=== PATIENT | male | born 1965 | race Caucasian/White ===

== ENCOUNTER 2017-07-21 07:12 | Emergency (ER) | payer OTHER ==
--- NOTE | 2017-07-21 07:31 | EDM.PDOC ---
ED HPI GENERAL MEDICAL PROBLEM - General Chief Complaint: Lower Extremity Injury/Pain Stated Complaint: FOOT SWELLING POSS GOUT Time Seen by Provider: 07/21/17 07:23 - History of Present Illness INITIAL COMMENTS - FREE TEXT/NARRATIVE: 52-year-old male presents emergency room with left foot pain. This started yesterday it is around his ankle and in his midfoot and extends back to his heel. Patient has a history gout this is usually how it presents he has not had a more typical great toe presentation. He is not on any preventative therapies for this. Patient did try some ibuprofen 600 mg midday yesterday. This series of pain started yesterday progressively worsened he did not get much relief from the ibuprofen. Patient states he usually gets started on prednisone and this is what usually works the best for him. Patient denies any fevers or chills. The patient is from the [facility]. He is driving with his son back home and anticipates driving today. Left Feet Pain Score (Numeric/FACES): 9 - Related Data Allergies Allergy/AdvReac Type Severity Reaction Status Date / Time oxycodone Allergy Cannot Verified 07/21/17 07:22 Remember Home Meds: Home Meds Ibuprofen. 07/21/17 [History] Prednisone [IMW: predniSONE] 20 mg PO WITHBREAKFAST #17 tab 07/21/17 [Rx] Review of Systems - Review of Systems Review Of Systems: See Below Respiratory: Reports: No Symptoms Cardiovascular: Reports: No Symptoms GI/Abdominal: Reports: No Symptoms Musculoskeletal: Reports: Foot Pain Skin: Reports: No Symptoms Neurological: Reports: No Symptoms ED EXAM, GENERAL - Physical Exam Exam: See Below Exam Limited By: No Limitations General Appearance: Alert, No Apparent Distress, Other (Upon presentation his pulse was a little fast at 103 blood pressure was elevated at 167/119) Respiratory/Chest: No Respiratory Distress, Lungs Clear, Normal Breath Sounds Cardiovascular: Regular Rate, Rhythm, No Edema, No Murmur Extremities: Other (Examination of his left foot shows normal neurologic and vascular status patient has some swelling distal to the ankle over the medial midfoot and some generalized tenderness around the anklesignificant warmth he has some tenderness with palpation mild erythema.) Neurological: Alert, Oriented, Normal Cognition Course - Vital Signs Last Recorded V/S: Last Vital Signs Temp 36.6 C 07/21/17 07:22 Pulse 103 H 07/21/17 07:22 Resp BP 167/119 H 07/21/17 07:22 Pulse Ox 98 07/21/17 07:22 - Orders/Labs/Meds Orders: Active Orders 24 hr Category Date Time Status Foot Comp Min 3V Lt [CR] Stat Exams 07/21/17 07:31 Taken Labs: Laboratory Tests 07/21/17 07/21/17 Range/Units 07:55 07:55 WBC 8.08 (4.23-9.07) K/mm3 RBC 4.91 (4.63-6.08) M/mm3 Hgb 16.1 (13.7-17.5) gm/L Hct 46.7 (40.1-51.0) % MCV 95.1 H (79.0-92.2) fl MCH 32.8 H (25.7-32.2) pg MCHC 34.5 (32.2-35.5) g/dl RDW Std Deviation 40.6 (35.1-43.9) fL Plt Count 234 (163-337) K/mm3 MPV 9.5 (9.4-12.3) fl Neutrophils % (Manual) 74 H (40-60) % Band Neutrophils % 1 (0-10) % Lymphocytes % (Manual) 18 L (20-40) % Atypical Lymphs % 0 % Monocytes % (Manual) 5 (2-10) % Eosinophils % (Manual) 1 (0.8-7.0) % Basophils % (Manual) 1 (0.2-1.2) Platelet Estimate Adequate RBC Morph Comment Normal Sodium 140 (136-145) mEq/L Potassium 4.4 (3.5-5.1) mEq/L Chloride 104 (98-107) mEq/L Carbon Dioxide 27 (21-32) mEq/L Anion Gap 13.4 (5-15) BUN 14 (7-18) mg/dL Creatinine 1.0 (0.7-1.3) mg/dL Est Cr Clr Drug Dosing 99.88 mL/min Estimated GFR (MDRD) > 60 (>60) mL/min BUN/Creatinine Ratio 14.0 (14-18) Glucose 119 H (74-106) mg/dL Uric Acid 8.2 H (3.5-7.2) mg/dL Calcium 8.9 (8.5-10.1) mg/dL Meds: Medications Discontinued Medications Generic Name Dose Route Start Last Admin Trade Name Shellie PRClara Reason Stop Dose Admin Prednisone 60 mg 07/21/17 08:32 Prednisone PO 07/21/17 08:33 ONETIME ONE - Re-Assessments/Exams Free Text/Narrative Re-Assessment/Exam: 07/21/17 08:35 Uric acid is 8.3 basic metabolic is otherwise unremarkable CBC shows a white count that is not elevated significant left shift. X-ray examination is unremarkable of his left foot. Patient will be started on prednisone with firm instructions to establish with a regular physician back home to follow-up on his blood pressure Departure - Departure Time of Disposition: 08:36 Disposition: Home, Self-Care 01 Clinical Impression: Gout attack - Discharge Information Prescriptions: Prednisone [IMW: predniSONE] 20 mg PO WITHBREAKFAST #17 tab Referrals: PCP,None [Primary Care Provider] - Forms: ED Department Discharge Additional Instructions: Return to the emergency room with any questions problems or worsening symptoms. You been started on a prednisone taper. You have been given your first dose here in the emergency room the next 2 mornings he'll take 3 20 mg tablets. The following 3 days he will take 2 20 mg tablets. The following 3 days she will take 1 20 mg tablet. And the last 4 days you will take a half a tablet. You need to establish with a regular physician back home and follow-up with your blood pressure next week. Also need to discuss the gout in further treatment to prevent recurrent attacks. - My Orders Last 24 Hours: My Active Orders 07/21/17 07:31 Foot Comp Min 3V Lt [CR] Stat - Assessment/Plan Last 24 Hours: My Active Orders 07/21/17 07:31 Foot Comp Min 3V Lt [CR] Stat
[2017-07-21] MEDS ORDERED: predniSONE 20 MG Tab PO ONE (08:32)
[2017-07-21 09:19] VITALS: BP 164/120
--- NOTE | 2017-07-22 12:17 | CR ---
Left foot: Four views of the left foot were obtained. Comparison: No prior study. Minimal degenerative change is seen within the first MTP joint. No fracture or dislocation is seen. Small erosion is identified within the distal first metatarsal compatible with old gout. Impression: 1. Findings as noted above. Nothing acute is appreciated. Diagnostic code #2
== END 2017-07-21 08:50 | disposition home or self-care (01) ==
LOC: JD.ED 07:12
DX: M10.9 Gout, unspecified (principal); Z88.5 Allergy status to narcotic agent
CPT/HCPCS: 36415; 73630; 80048; 84550; 85025; 99284; A9270; 99283